=== PATIENT | male | born 1950 | race African-American/Black ===

== ENCOUNTER → 2016-09-13 | Outpatient (CLI) | payer MEDICARE, BC ==
--- NOTE | 2016-09-13 12:37 | KCIC ---
Examination: 2 views of the right shoulder HISTORY: History right shoulder pain COMPARISON: None available FINDINGS: The humerus head is within the glenoid. There is no acute fracture identified. Mild degenerative disease identified in the acromioclavicular joint and glenohumeral joint. IMPRESSION: No acute osseous findings. Electronically signed by: Moose Michelle MD (09/13/2016 12:34 PM)
== END | disposition home or self-care (01) ==
LOC: KCIC 08:58
PROVIDERS: ATTEND Family Medicine
DX: M25.511 Pain in right shoulder (principal)
CPT/HCPCS: 73030

== ENCOUNTER → 2017-03-21 | Outpatient (CLI) | payer MEDICARE, BC ==
--- NOTE | 2017-03-21 11:52 | KCIC ---
CHEST PA LATERAL History: Tobacco use. Longtime smoker.. Comparison: March 11, 2015. Findings: Cardiomediastinal silhouette is stable. Aorta is tortuous, similar to prior. No focal airspace consolidation. No pneumothorax identified. No evidence of pleural effusion. Impression: No evidence of active disease in the chest. No significant change. CT is more sensitive for nodule detection. Electronically signed by: Francisco Bloom MD (03/21/2017 11:48 AM) [facility]
== END | disposition home or self-care (01) ==
LOC: KCIC 09:20
PROVIDERS: ATTEND Family Medicine
DX: R07.9 Chest pain, unspecified (principal); Z87.891 Personal history of nicotine dependence
CPT/HCPCS: 71020